=== PATIENT | female | born 1980 | race African-American/Black ===

== ENCOUNTER → 2017-02-01 | Outpatient (CLI) | payer OTHER | LOC: HYPER 01-22 06:43 | DX: S31.829A Unspecified open wound of left buttock, initial encounter (principal); E10.621 Type 1 diabetes mellitus with foot ulcer; L97.521 Non-pressure chronic ulcer of other part of left foot limited to breakdown of skin; L89.890 Pressure ulcer of other site, unstageable; E11.49 Type 2 diabetes mellitus with other diabetic neurological complication; E10.22 Type 1 diabetes mellitus with diabetic chronic kidney disease; N18.6 End stage renal disease; Z99.2 Dependence on renal dialysis; K21.9 Gastro-esophageal reflux disease without esophagitis; M19.90 Unspecified osteoarthritis, unspecified site; F17.210 Nicotine dependence, cigarettes, uncomplicated; X58.XXXA Exposure to other specified factors, initial encounter ==